=== PATIENT | female | born 1940 | race Caucasian/White ===

== ENCOUNTER 2017-09-04 17:17 | Inpatient (IN) | payer MEDICARE ==
[~2017-09-04] VITALS: Ht 157.5 cm; Wt 120.1 kg
[2017-09-04 18:13] LABS: BASOPHILS ABSOLUTE AUTO 0.01 K/mm3 (0.00-0.23); BASOPHILS PERCENT AUTO 0 % (0-2); EOSINOPHILS ABSOLUTE AUTO 0.16 K/mm3 (0.00-0.68); EOSINOPHILS PERCENT AUTO 2 % (0-6); Hematocrit 35.3 % (33.0-51.0); Hemoglobin 12.2 g/dL (11.5-16.0); IMMATURE GRAN ABSOLUTE AUTO 0.01 K/mm3 (0.00-0.10); IMMATURE GRAN PERCENT AUTO 0 % (0-1); LYMPHOCYTES ABSOLUTE AUTO 0.82 K/mm3 (0.84-5.20); LYMPHOCYTES PERCENT AUTO 11 % (21-46); MONOCYTES ABSOLUTE AUTO 0.67 K/mm3 (0.16-1.47); MONOCYTES PERCENT AUTO 9 % (4-13); Mean Corpuscular HGB 33.4 pg (26.0-34.0); Mean Corpuscular HGB Conc 34.6 g/dL (31.5-36.5); Mean Corpuscular Volume 97 fL (80-100); Mean Platelet Volume 9.7 fL (9.1-12.4); NEUTROPHILS ABSOLUTE AUTO 6.15 K/mm3 (1.96-9.15); NEUTROPHILS PERCENT AUTO 79 % (41-73); Platelet Count 212 K/mm3 (150-400); RDW Coefficient Variation 13.3 % (11.7-14.2); RDW Standard Deviation 47.2 fL (35.1-46.3); Red Blood Cell Count 3.65 M/mm3 (3.80-5.20); White Blood Cell Count 7.82 K/mm3 (4.00-11.30)
[2017-09-04 18:23] LABS: Alanine Aminotransfer (ALT/SGP 13 U/L (12-78); Albumin/Globulin Ratio 0.7 (0.8-1.8); Alk Phos 91 U/L (50-136); Anion Gap 7 mmol/L (6-16); Aspartate Aminotrans (AST/SGOT 18 U/L (12-37); Bilirubin, Total 0.4 mg/dL (0.1-1.0); Blood Urea Nitrogen 9 mg/dL (8-24); Bun/Creatinine Ratio 9.6 (12.0-20.0); CO2, Blood 26 mmol/L (21-32); Calcium, Blood 8.8 mg/dL (8.5-10.1); Chloride, Blood 107 mmol/L (98-108); Creatinine, Blood 0.94 mg/dL (0.40-1.00); Globulin, Blood 4.2 g/dL (2.2-4.0); Glomerular Filtration Rate >60 (60-); Glucose, Blood 132 mg/dL (70-99); Potassium, Blood 3.3 mmol/L (3.5-5.5); Sodium, Blood 140 mmol/L (136-145); Total Protein, Blood 7.2 g/dL (6.4-8.2)
[2017-09-04] MEDS ORDERED: LEVSOD50 PO (18:33)
[2017-09-04] MEDS ORDERED: ALBU90OI6 INH (18:33)
[2017-09-04] MEDS ORDERED: HYDPAM25 PO (18:33)
[2017-09-04] MEDS ORDERED: POTCHL10ER PO (18:34)
[2017-09-04] MEDS ORDERED: Flovent 110 MCG12 GM INH (18:34)
[2017-09-04] MEDS ORDERED: HYDCHL25 PO (18:34)
[2017-09-04] MEDS ORDERED: CLOBET30L TOP (18:35)
[2017-09-04] MEDS ORDERED: FLUC100 PO (18:35)
[2017-09-05 05:39] LABS: BASOPHILS ABSOLUTE AUTO 0.02 K/mm3 (0.00-0.23); BASOPHILS PERCENT AUTO 0 % (0-2); EOSINOPHILS ABSOLUTE AUTO 0.22 K/mm3 (0.00-0.68); EOSINOPHILS PERCENT AUTO 3 % (0-6); Hemoglobin 9.9 g/dL (11.5-16.0); IMMATURE GRAN ABSOLUTE AUTO 0.01 K/mm3 (0.00-0.10); IMMATURE GRAN PERCENT AUTO 0 % (0-1); LYMPHOCYTES ABSOLUTE AUTO 1.06 K/mm3 (0.84-5.20); LYMPHOCYTES PERCENT AUTO 17 % (21-46); MONOCYTES ABSOLUTE AUTO 0.54 K/mm3 (0.16-1.47); MONOCYTES PERCENT AUTO 8 % (4-13); Mean Corpuscular HGB 33.4 pg (26.0-34.0); Mean Corpuscular HGB Conc 34.1 g/dL (31.5-36.5); Mean Corpuscular Volume 98 fL (80-100); Mean Platelet Volume 9.5 fL (9.1-12.4); NEUTROPHILS ABSOLUTE AUTO 4.56 K/mm3 (1.96-9.15); NEUTROPHILS PERCENT AUTO 71 % (41-73); Platelet Count 176 K/mm3 (150-400); RDW Coefficient Variation 13.6 % (11.7-14.2); RDW Standard Deviation 48.5 fL (35.1-46.3); Red Blood Cell Count 2.96 M/mm3 (3.80-5.20); White Blood Cell Count 6.41 K/mm3 (4.00-11.30)
[2017-09-05 06:06] LABS: Albumin, Blood 2.3 g/dL (3.4-5.0); Anion Gap 8 mmol/L (6-16); Blood Urea Nitrogen 7 mg/dL (8-24); Bun/Creatinine Ratio 7.8 (12.0-20.0); CO2, Blood 25 mmol/L (21-32); Calcium, Blood 8.2 mg/dL (8.5-10.1); Chloride, Blood 110 mmol/L (98-108); Creatinine, Blood 0.89 mg/dL (0.40-1.00); Glomerular Filtration Rate >60 (60-); Glucose, Blood 104 mg/dL (70-99); Phosphorus, Blood 3.2 mg/dL (2.5-4.9); Potassium, Blood 3.7 mmol/L (3.5-5.5); Sodium, Blood 143 mmol/L (136-145)
[2017-09-06 06:02] LABS: BASOPHILS ABSOLUTE AUTO 0.02 K/mm3 (0.00-0.23); BASOPHILS PERCENT AUTO 0 % (0-2); EOSINOPHILS PERCENT AUTO 5 % (0-6); Hematocrit 28.2 % (33.0-51.0); Hemoglobin 9.5 g/dL (11.5-16.0); IMMATURE GRAN ABSOLUTE AUTO 0.01 K/mm3 (0.00-0.10); IMMATURE GRAN PERCENT AUTO 0 % (0-1); LYMPHOCYTES ABSOLUTE AUTO 1.22 K/mm3 (0.84-5.20); LYMPHOCYTES PERCENT AUTO 20 % (21-46); MONOCYTES ABSOLUTE AUTO 0.69 K/mm3 (0.16-1.47); MONOCYTES PERCENT AUTO 11 % (4-13); Mean Corpuscular HGB 33.3 pg (26.0-34.0); Mean Corpuscular HGB Conc 33.7 g/dL (31.5-36.5); Mean Corpuscular Volume 99 fL (80-100); Mean Platelet Volume 9.7 fL (9.1-12.4); NEUTROPHILS ABSOLUTE AUTO 3.84 K/mm3 (1.96-9.15); NEUTROPHILS PERCENT AUTO 63 % (41-73); Platelet Count 183 K/mm3 (150-400); RDW Standard Deviation 50.5 fL (35.1-46.3); Red Blood Cell Count 2.85 M/mm3 (3.80-5.20); White Blood Cell Count 6.08 K/mm3 (4.00-11.30)
[2017-09-06 06:20] LABS: Anion Gap 6 mmol/L (6-16); Blood Urea Nitrogen 8 mg/dL (8-24); Bun/Creatinine Ratio 8.6 (12.0-20.0); CO2, Blood 25 mmol/L (21-32); Calcium, Blood 7.8 mg/dL (8.5-10.1); Chloride, Blood 111 mmol/L (98-108); Creatinine, Blood 0.93 mg/dL (0.40-1.00); Glomerular Filtration Rate >60 (60-); Glucose, Blood 92 mg/dL (70-99); Potassium, Blood 3.9 mmol/L (3.5-5.5); Sodium, Blood 142 mmol/L (136-145)
[2017-09-06] MEDS ORDERED: Bactrim 400-801 EACH PO (11:11)
[2017-09-06] MEDS ORDERED: ACIDOPHILUS1 EAC1 PO (11:12)
== END 2017-09-06 16:45 | disposition home or self-care (01) | DRG 603 ==
LOC: ER 17:17 → MEDS 21:29 → ENPENDDIS 09-06 11:00 → MEDS 09-06 16:45
PROVIDERS: Emergency Medicine; Family Medicine; Internal Medicine
DX: L03.114 Cellulitis of left upper limb (principal); R56.9 Unspecified convulsions; E66.01 Morbid (severe) obesity due to excess calories; E03.9 Hypothyroidism, unspecified; I10 Essential (primary) hypertension; L40.9 Psoriasis, unspecified; J45.909 Unspecified asthma, uncomplicated; E87.6 Hypokalemia; Z88.1 Allergy status to other antibiotic agents; Z88.8 Allergy status to other drugs, medicaments and biological substances; Z79.899 Other long term (current) drug therapy
CPT/HCPCS: 36415; 73201; 80048; 80053; 80069; 83605; 85025; 87040; 87070; 87075; 87205; 94640; 94760; 96365; 96372; 99285; J1650; J3370; J3480; J7050; Q0177; Q2038; Q9967

== ENCOUNTER → 2018-09-11 | Outpatient (CLI) | payer MEDICARE ==
[~2018-09-11] MED LIST: ACIDOPHILUS1 EAC1 PO; ALBU90OI6 INH; Bactrim 400-801 EACH PO; CLOBET30L TOP; FLUC100 PO; Flovent 110 MCG12 GM INH; HYDCHL25 PO; HYDPAM25 PO; LEVSOD50 PO; POTCHL10ER PO
== END | disposition home or self-care (01) ==
LOC: LAB SHORT 12:28 → LAB 12:28 → LAB FUT 09-10 15:20 → EDSTATUS 09-10 15:20
DX: R05 Cough (principal)
CPT/HCPCS: 87070; 87205

== ENCOUNTER → 2023-08-09 | Outpatient (CLI) | payer MEDICARE ==
[2023-08-09 19:20] LABS: BASOPHILS ABSOLUTE AUTO 0.02 K/mm3 (0.00-0.23); BASOPHILS PERCENT AUTO 1 % (0-2); EOSINOPHILS ABSOLUTE AUTO 0.14 K/mm3 (0.00-0.68); EOSINOPHILS PERCENT AUTO 4 % (0-6); Hematocrit 32.9 % (33.0-51.0); Hemoglobin 11.3 g/dL (11.5-16.0); IMMATURE GRAN ABSOLUTE AUTO 0.01 K/mm3 (0.00-0.10); IMMATURE GRAN PERCENT AUTO 0 % (0-1); LYMPHOCYTES ABSOLUTE AUTO 1.18 K/mm3 (0.84-5.20); LYMPHOCYTES PERCENT AUTO 35 % (21-46); MONOCYTES ABSOLUTE AUTO 0.38 K/mm3 (0.16-1.47); MONOCYTES PERCENT AUTO 11 % (4-13); Mean Corpuscular HGB 34.1 pg (26.0-34.0); Mean Corpuscular HGB Conc 34.3 g/dL (31.5-36.5); Mean Corpuscular Volume 99 fL (80-100); Mean Platelet Volume 10.7 fL (9.1-12.4); NEUTROPHILS ABSOLUTE AUTO 1.65 K/mm3 (1.96-9.15); NEUTROPHILS PERCENT AUTO 49 % (41-73); Platelet Count 160 K/mm3 (150-400); RDW Coefficient Variation 13.2 % (11.7-14.2); RDW Standard Deviation 47.8 fL (35.1-46.3); Red Blood Cell Count 3.31 M/mm3 (3.80-5.20); White Blood Cell Count 3.38 K/mm3 (4.00-11.30)
[2023-08-09 19:54] LABS: Alanine Aminotransfer (ALT/SGP 12 U/L (12-78); Albumin, Blood 3.2 g/dL (3.4-5.0); Albumin/Globulin Ratio 0.8 (0.8-1.8); Alk Phos 94 U/L (50-136); Anion Gap 5 mmol/L (6-16); Aspartate Aminotrans (AST/SGOT 18 U/L (12-37); Bilirubin, Total 0.5 mg/dL (0.1-1.0); Blood Urea Nitrogen 11 mg/dL (8-24); CO2, Blood 25 mmol/L (21-32); Calcium, Blood 8.2 mg/dL (8.5-10.1); Chloride, Blood 112 mmol/L (98-108); Cholesterol 186 mg/dL (50-200); Globulin, Blood 3.9 g/dL (2.2-4.0); Glomerular Filtration Rate 50 (60-); Glucose, Blood 107 mg/dL (70-99); HDL Cholesterol 46 mg/dL (>39); LDL/HDL RATIO 2.5; Low Density Lipoprotein Chol 116 mg/dL (0-110); Potassium, Blood 3.9 mmol/L (3.5-5.5); Sodium, Blood 142 mmol/L (136-145); Total Protein, Blood 7.1 g/dL (6.4-8.2); Triglycerides 118 mg/dL (30-160); Very Low Density Lipoprot Chol 23 mg/dL (6-32)
== END ==
LOC: LAB 16:10 → LAB SHORT 16:10
PROVIDERS: Internal Medicine
DX: E55.9 Vitamin D deficiency, unspecified (principal); L40.9 Psoriasis, unspecified; R73.9 Hyperglycemia, unspecified; E78.5 Hyperlipidemia, unspecified
CPT/HCPCS: 80053; 80061; 82306; 84443; 85025

== ENCOUNTER 2025-06-05 16:37 | Observation (INO) | payer OTHER, MEDICARE ==
[~2025-06-05] VITALS: Ht 154.9 cm; Wt 87.4 kg
[~2025-06-05 16:37] MED LIST changes: +EUTHYROX50 MCG PO; -LEVSOD50 PO
[2025-06-05 17:36] LABS: BASOPHILS ABSOLUTE AUTO 0.03 K/mm3 (0.00-0.23); BASOPHILS PERCENT AUTO 1 % (0-2); EOSINOPHILS ABSOLUTE AUTO 0.12 K/mm3 (0.00-0.68); EOSINOPHILS PERCENT AUTO 3 % (0-6); Hematocrit 29.7 % (33.0-51.0); Hemoglobin 9.9 g/dL (11.5-16.0); IMMATURE GRAN ABSOLUTE AUTO 0.01 K/mm3 (0.00-0.10); IMMATURE GRAN PERCENT AUTO 0 % (0-1); LYMPHOCYTES ABSOLUTE AUTO 0.85 K/mm3 (0.84-5.20); LYMPHOCYTES PERCENT AUTO 23 % (21-46); MONOCYTES ABSOLUTE AUTO 0.27 K/mm3 (0.16-1.47); MONOCYTES PERCENT AUTO 7 % (4-13); Mean Corpuscular HGB Conc 33.3 g/dL (31.5-36.5); Mean Corpuscular Volume 102 fL (80-100); NEUTROPHILS ABSOLUTE AUTO 2.47 K/mm3 (1.96-9.15); NEUTROPHILS PERCENT AUTO 66 % (41-73); NRBC ABSOLUTE 0.00 K/mm3 (0.00-0.02); NRBC Auto 0.0 /100 WBC (0.0-0.2); Platelet Count 125 K/mm3 (150-400); RDW Coefficient Variation 13.6 % (11.7-14.2); RDW Standard Deviation 50.5 fL (35.1-46.3)
[2025-06-05 17:56] LABS: Alanine Aminotransfer (ALT/SGP 14.0 U/L (12-78); Albumin, Blood 3.0 g/dL (3.4-5.0); Albumin/Globulin Ratio 0.8 (0.8-1.8); Anion Gap 7.0 mmol/L (3-11); Aspartate Aminotrans (AST/SGOT 22.0 U/L (12-37); Bilirubin, Total 0.7 mg/dL (0.1-1.0); Blood Urea Nitrogen 13.0 mg/dL (8-24); CO2, Blood 25.0 mmol/L (21-32); Calcium, Blood 8.6 mg/dL (8.5-10.1); Chloride, Blood 111.0 mmol/L (98-108); Creatinine, Blood 1.28 mg/dL (0.40-1.00); Globulin, Blood 3.7 g/dL (2.2-4.0); Glucose, Blood 126.0 mg/dL (70-99); Potassium, Blood 3.7 mmol/L (3.5-5.5); Sodium, Blood 139.0 mmol/L (136-145); Total Protein, Blood 6.7 g/dL (6.4-8.2)
[2025-06-05] MEDS ORDERED: HYDCHL25 (20:19)
[2025-06-05] MEDS ORDERED: FOLI1 (20:19)
[2025-06-05] MEDS ORDERED: Triamcinolone A15 G3 (20:20)
[2025-06-05] MEDS ORDERED: IPRAT-ALBUT 0.5-3 ML INH (20:21)
[2025-06-05] MEDS ORDERED: VENL37.5 (20:21)
[2025-06-05] MEDS ORDERED: DIFLUCAN100 MG (20:22)
[2025-06-05] MEDS ORDERED: BUDE.25 (20:23)
[2025-06-05] MEDS ORDERED: FLU VACC TS2025(65UP)/MF59C/PF 45 MCG/0.5 ML SYRINGE IM SCH (21:20)
[2025-06-05] MEDS ORDERED: Metoclopramide HCl 5MG / ML 2ML Vial IV PRN (21:20)
[2025-06-05] MEDS ORDERED: NS 1,000 ML IV SCH (21:20)
[2025-06-05] MEDS ORDERED: Ondansetron HCl 2 MG / ML 2ML Vial IV PRN (21:20)
[2025-06-05] MEDS ORDERED: FentaNYL Citrate 50 MCG/ML 2 ML Injection IV PRN (21:20)
[2025-06-05] MEDS ORDERED: Budesonide 0.5 MG/2 ML RESP INH SCH (21:25)
[2025-06-05] MEDS ORDERED: Albuterol 2.5 MG/3 ML VIAL INH PRN (21:25)
[2025-06-05 22:44] VITALS: BP 152/48
[2025-06-06 02:38] VITALS: BP 144/52
--- NOTE | 2025-06-06 05:56 | NUR ---
SHIFT SUMMARY ARRIVED FROM ER AT 2230. ORIENTED TO ROOM. PT A&Ox4 AND PLEASANT. PT REPORTS SEVERE PAIN IN RIGHT HIP THAT IS WORSE WITH MOVEMENT. MEDICATED PER EMAR WITH GOOD EFFECT. SKIN TEAR ON RIGHT ELBOW CLEANED AND NEW DRESSING PLACED. NS INFUSING AT 100ml/hr. NPO AT MIDNIGHT. VSS. CONSULT PLACED TO DR. PRICE ANSWERING SERVICE. PURWICK IN PLACE DRAINING TEA COLORED URINE. BED IN LOWEST POSITION AND CALL LIGHT IN REACH.
[2025-06-06 07:25] VITALS: BP 146/44
--- NOTE | 2025-06-06 10:00 | NUR ---
AM NOTE: RECEIVED A VOCERA CALL FROM [facility]. AT AROUND 0019. PER [facility] RADIOLOGY RECOMMEDED CT INSTEAD OF MRI. NOTIFIED DR. PRICE (ORTHO) REAGRDING THIS RECOMMENDATION. PER DR. PRICE HE WILL TALK TO RADIOLOGY.
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
--- NOTE | 2025-06-06 12:34 | NUR ---
NOTE: RECEIVED A CALL FROM DR. PRICE (ORTHO). PER DR. PRICE, PATIENT DOES NOT NEED A SURGERY, ORDER PT CONSULT AND WEIGHT BEARING TOLERATED.
[2025-06-06 16:41] VITALS: BP 155/62
--- NOTE | 2025-06-06 17:41 | NUR ---
SHIFT SUMMARY: PATIENT A/OX4, [place], PLEASANT AND COOPERATIVE c CARE. PATIENT MEDICATED FOR R HIP PAIN PER EMAR c GOOD EFFECT. PATIENT DENIES CP/PRESSURE, SOB, N/V AND DIZZINESS. PER DR. PRICE (ORTHO) NO SURGERY, PT OREDRED TO ASSESS MOBILITY AND RLE-WEIGHT BEARING MARITO. PATIENT HAS FAIR APPETITE, PUREWICK/ATTENDS IN PLACED FOR VOIDING. SCD'S IN PLACE TO BLE'S. VITAL SIGNS REVIEWED. BED IN LOWEST POSITION. BED ALARM ON FOR SAFETY. CALL LIGHT IN REACH.
[2025-06-06 19:12] VITALS: BP 130/50
[2025-06-06] MEDS ORDERED: Ipratropium/Albuterol SulF 2.5-0.5MG/3 ML Amp INH PRN (20:15)
[2025-06-07 02:01] VITALS: BP 135/51
[2025-06-07 04:44] LABS: Hematocrit 24.6 % (33.0-51.0); Hemoglobin 8.5 g/dL (11.5-16.0); Mean Corpuscular HGB Conc 34.6 g/dL (31.5-36.5); Mean Corpuscular Volume 100 fL (80-100); NRBC ABSOLUTE 0.00 K/mm3 (0.00-0.02); NRBC Auto 0.0 /100 WBC (0.0-0.2); Platelet Count 107 K/mm3 (150-400); RDW Coefficient Variation 13.3 % (11.7-14.2); RDW Standard Deviation 48.9 fL (35.1-46.3)
[2025-06-07 05:12] LABS: Anion Gap 8.0 mmol/L (3-11); Blood Urea Nitrogen 13.0 mg/dL (8-24); CO2, Blood 24.0 mmol/L (21-32); Calcium, Blood 8.0 mg/dL (8.5-10.1); Chloride, Blood 112.0 mmol/L (98-108); Creatinine, Blood 1.19 mg/dL (0.40-1.00); Glucose, Blood 100.0 mg/dL (70-99); Potassium, Blood 3.7 mmol/L (3.5-5.5); Sodium, Blood 140.0 mmol/L (136-145)
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
[2025-06-07 07:19] VITALS: BP 144/51
[2025-06-07] MEDS ORDERED: Clobetasol Prop 0.05% Cream 15 gm TOP SCH (09:00)
[2025-06-07] MEDS ORDERED: Miconazole Nitrate 2% 85 GM PWD TOP SCH (09:00)
[2025-06-07 12:06] LABS: Hematocrit 26.7 % (33.0-51.0); Hemoglobin 9.2 g/dL (11.5-16.0); Mean Corpuscular HGB Conc 34.5 g/dL (31.5-36.5); Mean Corpuscular Volume 99 fL (80-100); NRBC ABSOLUTE 0.00 K/mm3 (0.00-0.02); NRBC Auto 0.0 /100 WBC (0.0-0.2); Platelet Count 111 K/mm3 (150-400); RDW Coefficient Variation 13.6 % (11.7-14.2); RDW Standard Deviation 48.8 fL (35.1-46.3)
[2025-06-07 15:59] VITALS: BP 142/70
--- NOTE | 2025-06-07 17:08 | NUR ---
SHIFT SUMMARY: PATIENT WAS SEEN BY PT/OT TEODORA TODAY, RECOMMENDING SNF PLACEMENT. PATIENT UP IN THE CHAIR ASSISTED BY OT THIS AFTERNOON, STAYED IN CHAIR FOR AN HOUR AND A HALF-REQUESTED BACK IN BED c 1 ASSIST/FWW. PATIENT MEDICATED FOR ANXIETY AND FOR R HIP PAIN PER EMAR c GOOD EFFECT. PATIENT HAS GOOD APPETITE, CONTINENT OF BOWEL USES BSC, URGENCY/INCON OF BLADDER ATTENDS/PUREWICK IN PLACED. DRESSING CHANGED TO R ELBOW-SKIN TEAR. VITAL SIGNS REVIEWED. PATIENT A/OX4, ANXIOUS AT TIMES, PLEASANT AND COOPERATIVE c CARE. BED IN LOWEST POSITION. BED ALARM ON FOR SAFETY. CALL LIGHT IN REACH.
[2025-06-07 19:25] VITALS: BP 142/53
[2025-06-08 03:22] VITALS: BP 118/41
[2025-06-08 05:05] LABS: BASOPHILS ABSOLUTE AUTO 0.04 K/mm3 (0.00-0.23); BASOPHILS PERCENT AUTO 1 % (0-2); EOSINOPHILS ABSOLUTE AUTO 0.23 K/mm3 (0.00-0.68); EOSINOPHILS PERCENT AUTO 6 % (0-6); Hematocrit 24.4 % (33.0-51.0); Hemoglobin 8.3 g/dL (11.5-16.0); IMMATURE GRAN ABSOLUTE AUTO 0.00 K/mm3 (0.00-0.10); IMMATURE GRAN PERCENT AUTO 0 % (0-1); LYMPHOCYTES ABSOLUTE AUTO 1.03 K/mm3 (0.84-5.20); LYMPHOCYTES PERCENT AUTO 27 % (21-46); MONOCYTES ABSOLUTE AUTO 0.38 K/mm3 (0.16-1.47); MONOCYTES PERCENT AUTO 10 % (4-13); Mean Corpuscular HGB Conc 34.0 g/dL (31.5-36.5); Mean Corpuscular Volume 102 fL (80-100); NEUTROPHILS ABSOLUTE AUTO 2.12 K/mm3 (1.96-9.15); NEUTROPHILS PERCENT AUTO 56 % (41-73); NRBC ABSOLUTE 0.00 K/mm3 (0.00-0.02); NRBC Auto 0.0 /100 WBC (0.0-0.2); Platelet Count 106 K/mm3 (150-400); RDW Coefficient Variation 13.8 % (11.7-14.2); RDW Standard Deviation 51.3 fL (35.1-46.3)
[2025-06-08 05:38] LABS: Anion Gap 6.0 mmol/L (3-11); Blood Urea Nitrogen 17.0 mg/dL (8-24); CO2, Blood 24.0 mmol/L (21-32); Calcium, Blood 7.8 mg/dL (8.5-10.1); Chloride, Blood 114.0 mmol/L (98-108); Creatinine, Blood 1.28 mg/dL (0.40-1.00); Glucose, Blood 80.0 mg/dL (70-99); Potassium, Blood 3.9 mmol/L (3.5-5.5); Sodium, Blood 140.0 mmol/L (136-145)
--- NOTE | 2025-06-08 06:05 | NUR ---
SHIFT SUMMARY: PT AOX4, [place]. CALLS APPROPRIATELY AND ABLE TO MAKE NEEDS KNOWN. PT PLEASANT AND COOPERATIVE IN CARE. NO ACUTE OVERNIGHT EVENTS. PT VERY ITCHY AND PSORIASIS COVERING LEGS, BACK, AND TRUNK. STATES THAT SHE NORMALLY BATHES ENOUGH TO WASH OFF ANY FLAKING SKIN BUT HASNT BEEN ABLE TO DO SO SINCE BEING IN THE HOSPITAL. PT REFUSES ANY NARCOTICS, INSISTS ON ONLY TAKING TYLENOL FOR PAIN DESPITE CONSTANT ACHING. PT IN BED RESTING, BED IN LOWEST POSITION, CALL LIGHT IN REACH. CONTINUING CARE.
[2025-06-08 07:31] VITALS: BP 142/51
--- NOTE | 2025-06-08 10:46 | NUR ---
MEPILEX PLACED ON ELBOW SCRAPE. H/R REG, NO MURMUR NOTED. NO TELE. LUNGS CLEAR, RESP EASY, UNLABORED. ON R/A. BT X4 LAST BM YEST PER PT. VOIDS 1 ASST FWW TO BSC. PT STATES DOES NOT WANT TO GO TO SNF/ STATES CAN GET HELP AT HOME. NO OTHER NEW CONCERNS NOTED. BED INLOW POSITION, CALLLITE IN REACH, CALLS APPROP
--- NOTE | 2025-06-08 14:09 | NUR ---
DISCHARGE REVIEWED WITH PT. SHE VERBALIZED UNDERSTANDING MEDS AND INST. PENDING FAMILY HERE FOR D/CHG
--- NOTE | 2025-06-08 14:40 | NUR ---
DISCHARGED PT TO DOOR AT 1423 BY AIDE IN WHEELCHAIR. GOING WITH FAMILY. IV PULLED BY AIDE. NO TELE
--- NOTE | 2025-06-08 15:25 | NUR ---
pt forgot discharge info packet in room.. called home. daughter in law answered. 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
== END 2025-06-08 14:59 | disposition home health service (06) ==
LOC: ER 16:37 → MEDS 16:38 → SURS 16:38 → MEDS 22:28
PROVIDERS: Emergency Medicine; Family Medicine; ADMIT Student in an Organized Health Care Education/Training Program
DX: S72.114A Nondisplaced fracture of greater trochanter of right femur, initial encounter for closed fracture (principal); V28.49XA Other motorcycle driver injured in noncollision transport accident in traffic accident, initial encounter; I12.9 Hypertensive chronic kidney disease with stage 1 through stage 4 chronic kidney disease, or unspecified chronic kidney disease; N18.31 Chronic kidney disease, stage 3a; J45.909 Unspecified asthma, uncomplicated; E03.9 Hypothyroidism, unspecified; D61.818 Other pancytopenia; L40.9 Psoriasis, unspecified; Z79.890 Hormone replacement therapy; Z79.899 Other long term (current) drug therapy; Z88.0 Allergy status to penicillin; Z88.1 Allergy status to other antibiotic agents; Z88.2 Allergy status to sulfonamides; Z88.6 Allergy status to analgesic agent; Z88.8 Allergy status to other drugs, medicaments and biological substances
CPT/HCPCS: 36415; 70450; 72192; 73502; 80048; 80053; 85025; 85027; 90471; 90715; 93005; 93010; 94640; 94664; 94760; 97110; 97162; 97165; 97530; 97535; 99285-25; A9270; G0378; J7030; Q0177